=== PATIENT | male | born 1995 ===

== ENCOUNTER 2020-12-04 12:31 | Emergency (ER) | payer OTHER ==
[2020-12-04] MEDS ORDERED: TESSALON PERLE100 MG PO (13:38)
== END 2020-12-04 13:44 | disposition home or self-care (01) ==
LOC: ER1 12:31
DX: U07.1 COVID-19 (principal); Z90.89 Acquired absence of other organs; Z88.0 Allergy status to penicillin
CPT/HCPCS: 71045; 99283

== ENCOUNTER → 2022-01-09 | Outpatient (CLI) | payer OTHER ==
[~2022-01-09] MED LIST: TESSALON PERLE100 MG PO
== END ==
LOC: KOH-I 09:20
DX: R10.11 Right upper quadrant pain (principal)
CPT/HCPCS: 76705